=== PATIENT | male | born 2005 | race Caucasian/White ===

== ENCOUNTER → 2025-02-05 | Outpatient (CLI) | payer OTHER ==
--- NOTE | 2025-02-05 09:40 | US ---
EXAMINATION TYPE: US abdomen limited DATE OF EXAM: 02/05/2025 COMPARISON: NONE CLINICAL INDICATION: Male, 19 years old with history of R19.00 EPIGASTRIC SWELLING, MASS OR LUMP; Pt has had discomfort in his epigastric region near xyphoid process. He states his doctor felt a lump. TECHNIQUE: Epigastric region scanned in pt's area of concern FINDINGS: No obvious abnormality found on today's study. Follow-up CT can be performed if additional evaluation would be of benefit. IMPRESSION: 1. Negative ultrasound over the area of concern the epigastric region. [facility], , 02/05/2025 9:38 AM
== END | disposition home or self-care (01) ==
LOC: RADUSWWP 09:16
DX: R19.06 Epigastric swelling, mass or lump (principal)
CPT/HCPCS: 76705